=== PATIENT | female | born 1980 | race Caucasian/White ===

== ENCOUNTER 2020-11-14 15:17 | Emergency (ER) | payer MEDICAID, OTHER ==
[~2020-11-14] VITALS: Ht 170.2 cm; Wt 68.0 kg
[2020-11-14] MEDS ORDERED: MORPHINE SULFATE 4 MG/ML CPJ (NOT FOR IM USE) IV STA (15:36)
[2020-11-14] MEDS ORDERED: ONDANSETRON HCL 4MG/2ML INJ IV STA (15:36)
[2020-11-14] MEDS ORDERED: SODIUM CHLORIDE 0.9% 1,000 ML IV ONE (15:45)
[2020-11-14 16:13] LABS: BASOPHILS % 0.7 % (0.0-2.0); EOSINOPHILS % 0.9 % (0.0-5.0); HEMOGLOBIN. 11.3 g/dL (12.0-16.0); LYMPHOCYTES % 23.3 % (20.0-50.0); MEAN CORPUSCULAR HEMOGLOBIN 25.8 pg (28.0-32.0); MEAN CORPUSCULAR VOLUME 77.5 fL (81.0-99.0); MEAN PLATELET VOLUME 8.3 fl (7.4-10.4); MONOCYTES % 7.9 % (2.0-8.0); NEUTROPHILS % 67.2 % (40.0-76.0); PLATELET 290 x1000/uL (130-400); RED CELL DISTRIBUTION WIDTH 14.9 % (11.6-14.6)
[2020-11-14 16:18] LABS: CHLORIDE 106 mEq/L (98-107)
[2020-11-14 16:21] LABS: HCG SCREEN NEGATIVE; PROTHROMBIN TIME 10.5 sec (9.6-11.0)
[2020-11-14] MEDS ORDERED: IOHEXOL-300 100 ML BOTTLE ONE (17:10)
[2020-11-14] MEDS ORDERED: ONDANSETRON HCL 4MG/2ML INJ IV ONE (17:30)
[2020-11-14] MEDS ORDERED: KETOROLAC 30MG/ML VIAL IV ONE (19:00)
[2020-11-14] MEDS ORDERED: IBUP-2029 MT (19:50)
[2020-11-14] MEDS ORDERED: METH-773 MT (19:50)
[2020-11-14] MEDS ORDERED: TRAM50TA3 MT (19:50)
[2020-11-14] MEDS ORDERED: ONDA4TAB5 MT (19:50)
[2020-11-14 20:47] VITALS: BP 132/84
== END 2020-11-14 20:50 | disposition home or self-care (01) ==
LOC: ER 15:17
DX: S09.8XXA Other specified injuries of head, initial encounter (principal); S20.219A Contusion of unspecified front wall of thorax, initial encounter; S30.1XXA Contusion of abdominal wall, initial encounter; S60.222A Contusion of left hand, initial encounter; S60.221A Contusion of right hand, initial encounter; S70.01XA Contusion of right hip, initial encounter; Z98.890 Other specified postprocedural states; V43.52XA Car driver injured in collision with other type car in traffic accident, initial encounter; Y93.89 Activity, other specified; Y92.488 Other paved roadways as the place of occurrence of the external cause
CPT/HCPCS: 36415; 70450; 71045; 71260; 72125; 73090; 73130; 73562; 73590; 74177; 80053; 83690; 84484; 84703; 85025; 85610; 93005; 96361; 96374; 96375; 96376; 99291; J1885; J2270; J2405; J7030; Q9967